=== PATIENT | female | born 1975 | race Caucasian/White ===

== ENCOUNTER 2016-12-03 11:41 | Emergency (ER) | payer OTHER ==
[~2016-12-03] VITALS: Ht 172.7 cm; Wt 83.0 kg
[~2016-12-03 11:41] MED LIST: EXEM25TA PO; LORA1TAB12 PO; MULT-135 PO; VENL100T PO
[2016-12-03 11:42] VITALS: BP 140/86; PULSE 99; RESP 15; TEMP 98.1; O2SAT 98
--- NOTE | 2016-12-03 11:48 | PD ---
Physical Exam Time Seen by Provider: 11:46 Narrative 41 y/o female here for evaluation of a wound on L thumb. 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 Vital signs reviewed. Seen at triage desk. Awaiting bed placement. Data Data Last Documented VS Vital Signs Date Time Temp Pulse Resp B/P Pulse Ox O2 Delivery O2 Flow Rate FiO2 12/03/16 11:42 98.1 99 15 140/86 98 MDM Medical Record Reviewed: Yes Supervised Visit with AYDE: Gerhard Adan Dec 03, 2016 11:48
--- NOTE | 2016-12-03 12:19 | PD ---
HPI Chief Complaint: Exposure to Blood/Body Fluids Time Seen by Provider: 12:19 Travel History International Travel<30 days: No Contact w/Intl Traveler<30days: No Traveled to known affect area: No History of Present Illness HPI 41-year-old female presents to the emergency department for evaluation of bodily fluid exposure. 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 The patient states that she immediately washed her hands with soap and water. She denies any complaints. The patient states that she has a personal history of stage IV breast cancer with metastases to the uterus and ovaries, she received a bilateral mastectomy and total hysterectomy with chemotherapy and radiation, last received these treatments 2 years ago. The only medication she is currently prescribed is a hormone suppressive. The patient states she is currently in her second round of Hepatitis B vaccinations, she received her second dose last week. Denies any other complaints. PFSH Past Medical History Hx Anticoagulant Therapy: Yes (heparin 2wks ago) Anxiety: No Depression: No Cancer: Yes (LEFT BREAST (CHEMO/RADS)) Cardiovascular Problems: No Chemotherapy: Yes (last Feb 2014) Cerebrovascular Accident: No Diabetes: No Endocrine: No Genitourinary: No Hepatitis: No Hiatal Hernia: No Immune Disorder: No Implanted Vascular Access Dvce: Yes Musculoskeletal: No Neurologic: No Psychiatric: No Reproductive: No Respiratory: No Migraines: No Radiation Therapy: Yes (s/p Apr 24 2014) Seizures: Yes (POSSIBLE REACTION TO REGLAN) Thyroid Disease: No ?: Not : 6 Para: 3 Miscarriage: 3 Dilation and Curettage (D&C): Yes Past Surgical History Abdominal Surgery: No AICD: No Body Medical Devices: BREASTS Cardiac Surgery: No Ear Surgery: No Endocrine Surgery: No Eye Surgery: No Genitourinary Surgery: No Gynecologic Surgery: Yes (TOTAL HYSTERECTOMY 10/2014) Hysterectomy: Yes (2014) Joint Replacement: No Mastectomy: Yes (BILAT & RECONSTRUCTION 09/11/2013) Oral Surgery: Yes (DENTAL EXTRACTION ) Pacemaker: No Thoracic Surgery: No Other Surgery: Yes Social History Alcohol Use: No Tobacco Use: No Substance Use: No Allergies-Medications (Allergen,Severity, Reaction): Coded Allergies: Reglan (Verified Allergy, Severe, Seizures, 07/15/16) Reported Meds & Prescriptions Reported Meds & Active Scripts Active Kaletra (Lopinavir/Ritonavir) 200-50 Mg Tab 2 Tab PO Q12HR 23 Days Fill this 5 day prescription first & begin taking Kaletra 12 hours after the first dose received in the Emergency Department as prescribed. Kaletra (Lopinavir/Ritonavir) 200-50 Mg Tab 2 Tab PO Q12HR 5 Days Fill this 5 day prescription first & begin taking Kaletra 12 hours after the first dose received in the Emergency Department as prescribed. Zidovudine 100 Mg Cap 300 Mg PO Q12HR 23 Days Zidovudine 100 Mg Cap 300 Mg PO Q12HR 5 Days Lamivudine 150 Mg Tab 150 Mg PO BID 23 Days Lamivudine 150 Mg Tab 150 Mg PO BID 5 Days Reported Effexor (Venlafaxine HCl) 100 Mg Tab 225 Mg PO DAILY Multi Vitamin (Multiple Vitamin) 1 Tab Tab 1 Tab PO DAILY Lorazepam 1 Mg Tab 1 Mg PO DAILY PRN Exemestane 25 Mg Tab 25 Mg PO DAILY Review of Systems Except as stated in HPI: all other systems reviewed are Neg Physical Exam Narrative GENERAL: Well-nourished and well-developed pleasant female patient in no acute distress who is nontoxic appearing. SKIN: Warm and dry. There is a 3 mm abrasion to the left thumb radial aspect, just beside the nail. HEAD: Normocephalic and atraumatic. EYES: No injection, drainage, or hyphema noted. PERRLA. EOMI. ENT: No nasal drainage noted. Oropharynx is clear. NECK: Supple and the trachea is midline. CARDIOVASCULAR: Regular rate and rhythm. RESPIRATORY: Breath sounds are equal bilaterally with no accessory muscle use, wheezing, rhonchi, or crackles. GASTROINTESTINAL: Abdomen is soft, non-tender, and nondistended. MUSCULOSKELETAL: No obvious deformities, swelling, cyanosis, or ecchymosis is present throughout the upper and lower extremities. Patient has full range of motion without any signs of neurovascular compromise. NEUROLOGICAL: Awake, alert, and oriented. Normal speech and gait. Cranial nerves are grossly intact. Data Data Last Documented VS Vital Signs Date Time Temp Pulse Resp B/P Pulse Ox O2 Delivery O2 Flow Rate FiO2 12/03/16 11:42 98.1 99 15 140/86 98 Orders Complete Blood Count With Diff (12/03/16 12:19) Comprehensive Metabolic Panel (12/03/16 12:19) Lamivudine (Epivir) (12/03/16 12:30) Zidovudine (Retrovir) (12/03/16 12:30) Lopinavir-Ritonavir 200-50 Mg (Kaletra 2 (12/03/16 12:30) MDM Medical Decision Making Medical Screen Exam Complete: Yes Emergency Medical Condition: Yes Differential Diagnosis Bodily fluid exposure versus HIV exposure versus post exposure prophylaxis versus abrasion Narrative Course 41-year-old female presents to the emergency department for evaluation of exposure to bodily fluid from a known HIV patient. Patient is afebrile, vital signs are stable. The patient has a very small abrasion to her left hand thumb , urine splashed on the patient's thumb. The source patient has HIV AIDS. Unsure whether the source patient has hepatitis. I discussed the case with my attending physician Dr. Cordero and because of the source patient's history and unknown whether there is any blood in the source patient's urine we agree with recommendation of PEP. Discussed PEP with the patient as well as side effects of the medications. She elects to receive PEP. Baseline labs have been sent on the patient. She is given her first dose of medications here in the ED. I spoke with Sergey Bonilla at [facility] who states that they will perform hepatitis B titers on the patient and decide whether she needs a hepatitis immunoglobulin or booster at that time. Patient verbalizes understanding and is in agreement with treatment plan. Diagnosis Primary Impression: HIV exposure from body fluids Referrals: [facility] Patient Instructions: Postexposure Prophylaxis (ED) Additional Instructions: Contact [facility] today for follow-up instructions. Take medications as prescribed. Return to the ED for any acute worsening of symptoms. Med/Other Pt SpecificInfo: Prescription(s) given Scripts Lopinavir-Ritonavir (Kaletra)200-50 Mg Tab2 Tab PO Q12HR 23 Days Ref 0 Fill this 5 day prescription first & begin taking Kaletra 12 hours after the first dose received in the Emergency Department as prescribed. Prov:Maynor Cordero MD 12/03/16 Lopinavir-Ritonavir (Kaletra)200-50 Mg Tab2 Tab PO Q12HR 5 Days Ref 0 Fill this 5 day prescription first & begin taking Kaletra 12 hours after the first dose received in the Emergency Department as prescribed. Prov:Maynor Cordero MD 12/03/16 Zidovudine 100 Mg [id number] Mg PO Q12HR 23 Days Ref 0 Prov:Maynor Cordero MD 12/03/16 Zidovudine 100 Mg Upt233 Mg PO Q12HR 5 Days Ref 0 Prov:Maynor Cordero MD 12/03/16 Lamivudine 150 Mg Man958 Mg PO BID 23 Days Ref 0 Prov:Maynor Cordero MD 12/03/16 Lamivudine 150 Mg Wis355 Mg PO BID 5 Days Ref 0 Prov:Maynor Cordero MD 12/03/16 Disposition: 01 DISCHARGE HOME Condition: Stable Alyx Cisneros Dec 03, 2016 12:19
[2016-12-03] MEDS ORDERED: KALETRA200 PO (12:27)
[2016-12-03] MEDS ORDERED: ZIDO100C4 PO (12:27)
[2016-12-03] MEDS ORDERED: LAMI1TAB7 PO (12:27)
[2016-12-03] MEDS ORDERED: LOPINAVIR/RITONAVIR 200 MG/50 MG TAB PO ONE (12:30)
[2016-12-03] MEDS ORDERED: ZIDOVUDINE 100 MG CAP PO ONE (12:30)
[2016-12-03 13:04] LABS: AUTOMATED NEUTROPHIL # 2.8 TH/MM3 (1.8-7.7); EOSINOPHIL % 0.6 % (0.0-4.0); HEMATOCRIT 39.1 % (35.0-46.0); HEMO FLAGS DIFF FINAL; LYMPH % 29.3 % (9.0-44.0); LYMPHOCYTE # 1.3 TH/MM3 (1.0-4.8); MEAN CELL VOLUME 83.3 FL (80.0-100.0); MEAN CORPUSCULAR HEMOGLOBIN 28.6 PG (27.0-34.0); MEAN CORPUSCULAR HGB CONC 34.3 % (32.0-36.0); MONO % 6.2 % (0.0-8.0); NEUT % 62.9 % (16.0-70.0); PLATELET COUNT 247 TH/MM3 (150-450); RED CELL DISTRIBUTION WIDTH 13.3 % (11.6-17.2); WHITE BLOOD COUNT 4.5 TH/MM3 (4.0-11.0)
[2016-12-03 13:14] LABS: ALT (GPT) 25 U/L (10-53); ANION GAP 5 MEQ/L (5-15); AST (GOT) 45 U/L (15-37); BICARBONATE 30.4 MEQ/L (21.0-32.0); BLOOD UREA NITROGEN 28 MG/DL (7-18); CHLORIDE 106 MEQ/L (98-107); GLOMERULAR FILTRATION RATE 86 ML/MIN (>89); SODIUM (NA) 141 MEQ/L (136-145)
[2016-12-03 13:16] LABS: ALKALINE PHOSPHATASE 132 U/L (45-117); TOTAL BILIRUBIN ADULT 0.6 MG/DL (0.2-1.0)
== END 2016-12-03 14:16 | disposition home or self-care (01) ==
LOC: NEPE 11:41
DX: Z20.6 Contact with and (suspected) exposure to human immunodeficiency virus [HIV] (principal); S60.312A Abrasion of left thumb, initial encounter; Y92.230 Patient room in hospital as the place of occurrence of the external cause; Y93.F9 Activity, other caregiving; Y99.0 Civilian activity done for income or pay
CPT/HCPCS: 80053; 85025; 99284